=== PATIENT | male | born 2000 | race Caucasian/White ===

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

== ENCOUNTER 2020-04-29 06:14 | Day surgery (SDC) | payer OTHER ==
[2020-04-29] MEDS ORDERED: CEFAZOLIN SODIUM IN 0.9 % NACL 2 GM/100 ML BAG IV ONE (06:24)
[2020-04-29] MEDS ORDERED: LACTATED RINGERS 1,000 ML IV ONE ×3 (06:24→08:31)
[2020-04-29 06:42] LABS: HCG UR QUAL NEGATIVE
[2020-04-29] MEDS ORDERED: fentaNYL 100 MCG/2 ML VIAL IVP ONE (07:00)
[2020-04-29] MEDS ORDERED: DEXAMETHASONE 4 MG/ML VIAL IVP ONE (07:00)
[2020-04-29] MEDS ORDERED: ONDANSETRON 4 MG/2 ML VIAL IVP ONE (07:00)
[2020-04-29] MEDS ORDERED: KETOROLAC 30 MG/ML VIAL IVP ONE (07:00)
[2020-04-29] MEDS ORDERED: PROPOFOL 200 MG/20 ML VIAL IVP ONE (07:00)
[2020-04-29] MEDS ORDERED: BUPIVACAINE 0.25% PF 30 ML VIAL ONE (07:18)
--- NOTE | 2020-04-29 07:18 | ANESTHESIA ---
Pre-Anesthesia VS, & Labs - Diagnosis Right Arm nerve impingement - Procedure Right Cubital Tunnel Release Vital Signs: Temp Pulse Resp BP Pulse Ox 36.6 C 97 16 148/69 H 100 04/29/20 06:44 04/29/20 06:44 04/29/20 06:44 04/29/20 06:44 04/29/20 06:44 Height: 5 ft 9 in Weight (kg): 74 kg Body Mass Index: 24.0 BMI Classification: Healthy weight - Is Patient ?: No (HCG neg) Home Medications and Allergies Home Medications: Ambulatory Orders Ethinyl Estradiol/Drospirenone [Koki 28 Tablet] 1 each PO DAILY 04/09/20 Ethinyl Estradiol/Drospirenone [Koki 28 Tablet] 1 each PO DAILY 04/09/20 Allergies/Adverse Reactions: Allergies Allergy/AdvReac Type Severity Reaction Status Date / Time No Known Drug Allergies Allergy Verified 04/09/20 14:59 Anes History & Medical History - Anesthetic History Anesthesia Complications: reports: No previous complications Family history of Anesthesia Complications: Denies Family history of Malignant Hyperthermia: Denies - Medical History Cardiovascular: reports: None Pulmonary: reports: None Gastrointestinal: reports: None Urinary: reports: Retention Neuro: reports: None Musculoskeletal: reports: Other Endocrine/Autoimmune: reports: None Blood Disorders: reports: None Skin: reports: Psoriasis Smoking Status: Never smoker Psychosocial: reports: No issues indicated History of Cancer?: No Exam Dental: WNL Mouth Openin Fingerbreadth Mallampati classification: II Thyromental Distance: 4-6 cm Plan Anesthesia Type: General Consent for Procedure(s) Verified and Reviewed: Yes Code Status: Attempt Resuscitation ASA classification: 1-Healthy patient Is this case an emergency?: No
[2020-04-29] MEDS ORDERED: NALOXONE 0.4 MG/ML VIAL IVP PRN (07:20)
[2020-04-29] MEDS ORDERED: ATROPINE ABBOJECT 1 MG/10 ML SYRINGE IVP PRN (07:20)
[2020-04-29] MEDS ORDERED: fentaNYL 100 MCG/2 ML VIAL IVP PRN (07:20)
[2020-04-29] MEDS ORDERED: ACETAMINOPHEN 1,000 MG/100 ML 100 ML IV ONE (07:20)
[2020-04-29] MEDS ORDERED: ePHEDrine 50 MG/ML VIAL IVP PRN (07:20)
[2020-04-29] MEDS ORDERED: MORPHINE 2 MG/ML CARPUJECT IVP PRN (07:20)
[2020-04-29] MEDS ORDERED: HYDROmorphone 0.5 MG/0.5 ML SYRINGE IVP PRN (07:20)
[2020-04-29] MEDS ORDERED: METOCLOPRAMIDE 10 MG/2 ML VIAL IVP PRN (07:20)
[2020-04-29] MEDS ORDERED: ONDANSETRON 4 MG/2 ML VIAL IVP PRN ×2 (07:20→08:40)
[2020-04-29] MEDS ORDERED: BUPIVACAINE 0.25% PF 30 ML VIAL SUBQ ONE ×2 (07:54)
[2020-04-29] MEDS ORDERED: LACTATED RINGERS 1,000 ML IV SCH (08:00)
[2020-04-29] MEDS ORDERED: oxyCODONE 5 MG TABLET PO PRN (08:40)
--- NOTE | 2020-04-29 08:50 | IMMEDIATE POSTOPERATIVE NOTE ---
Immediate Postoperative Note - Procedure Note Procedure Date: 04/29/20 Pre-Op Diagnosis: right cubital tunnel syndrome Procedure: right cubital tunnel release Post-Op Diagnosis: same Primary Surgeon: Khai Shetty Neuro Ophthalmologist: Aftab Dickerson Findings: contused nerve Complications: No complications Estimated Blood Loss (in cc): 5 Drains, Catheters, Devices: none Specimens and Cultures: none Plan of Care: same day discharge
[2020-04-29 09:09] VITALS: BP 138/68
--- NOTE | 2020-04-29 09:13 | ANESTHESIA POST OP EVALUATION ---
Anesthesia Post Eval - Post Anesthesia Eval Vitals: Last Vital Signs Temp 37.1 C 04/29/20 08:49 Pulse 92 04/29/20 09:09 Resp 14 04/29/20 09:09 BP 138/68 H 04/29/20 09:09 Pulse Ox 99 04/29/20 09:09 CV Function Including HR & BP: positive: Stable Pain Control: positive: Satisfactory Nausea & Vomiting: positive: Negative Mental Status: positive: Baseline Respiratory Status: Airway Patent Hydration Status: Satisfactory Anesthesia Complications: positive: None
--- NOTE | 2020-04-29 14:27 | OPERATIVE REPORT ---
Operative Report - Other Other Information/Narrative: Date of Surgery: 29 April 2020 Pre-Op Diagnosis: Right cubital tunnel syndrome Procedure: Right cubital tunnel release Postop Diagnosis: Right tunnel syndrome Primary Surgeon: Khai Shetty Secondary Surgeon: Aftab Dickerson Complications: None Tourniquet Time: 39 minutes EBL: 5 cc Findings: Injected nerve at the medial epicondyle. It was stable status post relief and did not subluxate Indication For Surgery: 20-year-old female with right ulnar nerve symptoms for many months. Her painful numbness did not respond to conservative measures and a nerve conduction study showed cubital tunnel syndrome. The risks, benefits, and alternatives were discussed. Risks include ulnar nerve instability, pain, bleeding, infection, damage to nearby structures to include nerves and blood vessels, numbness, lack of symptom relief, need for further surgery, DVT, PE, stroke, and . Written consent was obtained. Procedure in Detail: The patient was met in the pre-operative hold area on the day of the procedure. The operative extremity was signed and questions were answered. The patient was brought to the operating room and a general anesthetic was administered. Supine position was used and bony prominences were padded. Standard prepping and draping was performed. A sterile tourniquet was applied. A time out confirmed patient identification, laterality, procedure, allergies, antibiotics, and images. An Esmarch was used to exsanguinate the limb and the tourniquet was elevated to 250 mmHg. A 5 cm incision was made along the course of the ulnar nerve just posterior to the medial epicondyle. Scissor dissection was carried out and branches of the medial antebrachial cutaneous nerve were identified and protected. Scissor dissection was carried down to the cubital tunnel and it was opened just anterior to the attachment of the ligament on the olecranon. I took care to stay posterior to prevent future subluxation of the nerve. The ulnar nerve was identified and the cubital tunnel was dissected distally very carefully. I encountered the initial sensory branch to the capsule and the motor branches to the FCU and protected them. I sharply transected the fascia over the FCU to gain further access to the ulnar nerve as it passed deep into the muscle. blunt dissection was used to dissect the muscle and exposed the nerve further. I then released the fascia deep to the muscle and ensured the nerve was freely mobile distally without any compression points. I then moved proximal and followed the nerve up the medial arm a few centimeters taking care to protect any cutaneous branches. I freed the nerve proximally 4 cm from the medial epicondyle. I took care to leave as many blood vessels as possible attached to the nerve. I then inspected deep to the nerve an did not find any protruding osteophytes. The course of the nerve was smooth and no bony resection was necessary. I then irrigated the wound copiously and took her through a full range of motion. The nerve had no compression points and the nerve remained stable in the groove. I then loosely approximated the fascia to the posterior soft tissues to provide additional support. I again moved him through a full range of motion and the nerve glided smoothly without instability or compression points. The wound was then closed in a layered fashion with 2-0 Vicryl in the dermis and running Monocryl in the skin. A sterile dressing and splint was then applied and a bulky dressing was placed with the elbow nearly fully extended. He was awakened and transferred to the recovery room Postoperative plan: Gentle range of motion from 0-2 weeks. Follow-up at 2 weeks to cut Monocryl suture ends and assess the wound. I will remove the bulky dressing at that time and advance range of motion. No strengthening until 6 weeks.
== END 2020-04-29 06:15 | disposition home or self-care (01) ==
LOC: SDS 06:14
PROVIDERS: ATTEND Orthopaedic Surgery
PROC: 01N40ZZ Release Ulnar Nerve, Open Approach (ICD-10-PCS; principal; 2020-04-29 07:30)
DX: G56.21 Lesion of ulnar nerve, right upper limb (principal)
CPT/HCPCS: 81025

== ENCOUNTER 2020-06-24 09:13 | Outpatient (CLI) | payer OTHER ==
[2020-06-24] MEDS ORDERED: BUFFERED LIDOCAINE 10 ML SYRINGE ONE (09:35)
[2020-06-24] MEDS ORDERED: GADOBUTROL 7.5 MMOL/7.5 ML VIAL ONE (09:35)
--- NOTE | 2020-06-24 10:23 | XRAY Report ---
EXAMINATION: Right shoulder arthrogram for gadolinium injection CLINICAL INFORMATION: Pain right shoulder. COMPARISON STUDY: None TECHNIQUE: The risks, benefits, and alternatives of arthrography for injection of gadolinium for MRI, including the risks of bleeding, infection, and joint damage, were discussed with the patient and the patient s igned informed consent. The patient was placed supine on the fluoroscopy table and the right shoulder prepped and draped in usual sterile fashion. Using local anesthesia and sterile technique the right shoulder joint was accessed using a 22 gauge needle. Approximately 15 mL of the following mixture was injected: 10 ml saline and 0.3 ml Gadavist. The needle was withdrawn. The patient tolerated the proc edure well. There were no complications. Fluoroscopy time: < 1 minute FINDINGS: Fluoroscopic images demonstrate intra-articular location of contrast. IMPRESSION: 1. Successful intra-articular injection of gadolinium for MRI. Reviewed by: Mina Garcia MD on 06/24/2020 10:22 AM PST Approved by: Mina Garcia MD on 06/24/2020 10:22 AM PST Station ID: [id number]
[2020-06-24] MEDS ORDERED: BUFFERED LIDOCAINE 10 ML SYRINGE IU ONE (10:52)
[2020-06-24] MEDS ORDERED: iohexoL-240 10 ML VIAL IVP ONE (10:54)
[2020-06-24] MEDS ORDERED: GADOBUTROL 7.5 MMOL/7.5 ML VIAL IVP ONE (10:54)
--- NOTE | 2020-06-24 14:03 | MRI Report ---
PROCEDURE: Arthrogram Shoulder RT INDICATIONS: RT SHLDR INSTABILITY CONTRAST: 12 mL of diluted intra-articular gadolinium contrast. TECHNIQUE: After the administration of 12 mL of dilute intra-articular Gadolinium contrast, oblique coronal T1 a nd T2 spin echo with fat saturation, oblique sagittal T1 spin echo with and without fat saturation, o blique sagittal T2 fast spin echo with fat saturation, axial T1 spin echo with fat saturation through the shoulder. COMPARISON: None. FINDINGS: Image quality: Excellent. Rotator cuff: There is tendinosis and very low-grade articular surface partial-thickness tear involvi ng distal supraspinatus at its insertion on humeral head. The infraspinatus, and subscapularis tendon s appear intact throughout. No rotator cuff muscle atrophy on sagittal images. Bones and bursae: No bone marrow contusions or fractures. No acromioclavicular joint degeneration. The acromion demonstrates conventional anatomy, without an os acromiale. Capsule and soft tissues: The labrum and glenohumeral ligaments appear intact. The long head of the biceps tendon demonstrates normal location and morphology. The rotator interval appears normal, wit hout fibrosis. The coracohumeral ligament is of normal thickness. No intra-articular bodies. IMPRESSION: 1. Distal supraspinatus tendinosis and low-grade articular surface partial-thickness tear near its in sertion on humeral head. No full-thickness rotator cuff tendon rupture. 2. No marrow edema. No fracture or dislocation. 3. No evidence of focal labral tear. Reviewed by: Jan Melgoza MD on 06/24/2020 1:02 PM [facility] Approved by: Jan Melgoza MD on 06/24/2020 1:02 PM [facility] Station ID: [id number]
== END 2020-06-24 09:14 | disposition home or self-care (01) ==
LOC: DI 09:13
PROVIDERS: ATTEND Orthopaedic Surgery
DX: M25.311 Other instability, right shoulder (principal); M75.101 Unspecified rotator cuff tear or rupture of right shoulder, not specified as traumatic
CPT/HCPCS: 23350; 73222; 77002; A9585; Q9966

== ENCOUNTER 2020-09-12 12:40 | Emergency (ER) | payer OTHER ==
[2020-09-12] MEDS ORDERED: IBUPROFEN 600 MG TABLET PO STA (12:48)
[2020-09-12 12:50] VITALS: BP 157/101
--- NOTE | 2020-09-12 12:51 | ED Physician Documentation ---
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 She has had about 2-1/2 years of atraumatic right shoulder pain. Had an MRI done in October 2018 showing small amount of bursal fluid with a type II unit partite undersurface osseous acromion shape, a prominent sublabral hole. Subsequently had an MRI arthrogram done about 2 months ago showing distal supraspinatus tendinosis and low-grade articular surface partial-thickness tear. She takes ibuprofen intermittently for the pain but without specific injury or overuse the pain has been worse over the last few days and her command thought she should come to the ER to get it evaluated. Review of Systems Constitutional: denies: Fever, Chills Nose: reports: Reviewed and negative Throat: reports: Reviewed and negative Cardiac: reports: Reviewed and negative PD PAST MEDICAL HISTORY - Past Medical History Cardiovascular: None Respiratory: None Neuro: None Endocrine/Autoimmune: None GI: None : Retention HEENT: None Psych: None Musculoskeletal: Other Derm: Psoriasis - Present Medications Home Medications: Ambulatory Orders Medication Instructions Recorded Confirmed Ethinyl Estradiol/Drospirenone 1 each PO DAILY 04/09/20 04/29/20 [Koki 28 Tablet] HYDROcod/ACETAM 5/325 [[place] 5/325] 1 - 2 tab PO Q6H PRN #15 tab 09/12/20 Ibuprofen [Motrin] 800 mg PO Q8H PRN #30 tab 09/12/20 - Allergies Allergies/Adverse Reactions: Allergies Allergy/AdvReac Type Severity Reaction Status Date / Time No Known Drug Allergies Allergy Verified 09/12/20 12:50 - Social History Smoking Status: Never smoker PD ED PE NORMAL - Vitals Vital signs reviewed: Yes - General General: Alert and oriented X 3, No acute distress - Extremities Extremities: Other (R shoulder not warm, no cellulitis. Not tender. Only can abduct to 90 degrees d/t pain. Passive int/ext rotation not painful.) - Neuro Neuro: Alert and oriented X 3, Normal speech Results - Vitals Vitals: Vital Signs - 24 hr 09/12/20 09/12/20 12:48 12:50 Temperature 36.4 C L Heart Rate 121 H 111 H Respiratory 16 Rate Blood Pressure 157/101 H O2 Saturation 99 Oxygen O2 Source Room air Departure - Departure Disposition: Home, Self Care Clinical Impression: Rotator cuff disorder Qualifiers: Laterality: right Qualified Code(s): M67.911 - Unspecified disorder of synovium and tendon, right shoulder Condition: Good Record reviewed to determine appropriate education?: Yes Instructions: ED Tendinitis Rotator Cuff Follow-Up: Aftab Dickerson MD [Provider Admit Priv/Credential] - Prescriptions: Ibuprofen [Motrin] 800 mg PO Q8H PRN #30 tab PRN Reason: PAIN &/OR FEVER HYDROcod/ACETAM 5/325 [Sarah Ann 5/325] 1 - 2 tab PO Q6H PRN #15 tab PRN Reason: Pain Comments: Followup with Dr Dickerson, next available. Return if worse. Forms: Activity restrictions
== END 2020-09-12 12:56 | disposition home or self-care (01) ==
LOC: ED 12:40
DX: M67.911 Unspecified disorder of synovium and tendon, right shoulder (principal); M75.101 Unspecified rotator cuff tear or rupture of right shoulder, not specified as traumatic
CPT/HCPCS: 99282; 99283; A9270

== ENCOUNTER 2021-05-05 08:15 | Outpatient (CLI) | payer OTHER ==
--- NOTE | 2021-05-05 08:54 | XRAY Report ---
PROCEDURE: Shoulder 3 View RT INDICATIONS: RIGHT SHOULDER PAIN TECHNIQUE: 4 views of the shoulder were acquired. COMPARISON: None. FINDINGS: Bones: No fractures or dislocations. No suspicious bony lesions. Visualized ribs appear intact. Soft tissues: No suspicious soft tissue calcifications. IMPRESSION: Right shoulder without acute radiographic abnormalities or significant degenerative s[place]. Reviewed by: Anthony Ross MD on 05/05/2021 8:53 AM PDT Approved by: Anthony Ross MD on 05/05/2021 8:53 AM PDT Station ID: [id number]
== END 2021-05-05 23:59 ==
LOC: DI.N 08:15
PROVIDERS: ATTEND Physician Assistant
DX: M25.511 Pain in right shoulder (principal)

== ENCOUNTER 2021-07-07 17:17 | Emergency (ER) | payer OTHER ==
[2021-07-07 17:31] VITALS: BP 149/84
--- NOTE | 2021-07-07 17:57 | ED Physician Documentation ---
History of Present Illness - Stated complaint Stated Complaint: FEMALE - Chief complaint Chief Complaint: General - Additonal information Additional information: 21-year-old female presents to the emergency department for evaluation of heavy menstrual flow periods. Began last night. She typically uses a menstrual cup and states that today she has had to change at a time which is more than she certainly ever has. She estimates she has lost about two thirds of a cup of blood. Have been no fevers, no chest pain, no shortness of air, no syncope. She states that she has heavy periods but never this heavy. She did lose her IUD last month. Review of Systems Constitutional: denies: Fever, Chills Eyes: reports: Reviewed and negative Ears: reports: Reviewed and negative Nose: reports: Reviewed and negative Throat: reports: Reviewed and negative Cardiac: reports: Reviewed and negative GI: denies: Abdominal Pain, Vomiting : reports: Vaginal bleeding Skin: denies: Rash, Lesions PD PAST MEDICAL HISTORY - Past Medical History Cardiovascular: None Respiratory: None Neuro: None Endocrine/Autoimmune: None GI: None : Retention HEENT: None Psych: None Musculoskeletal: Other Derm: Psoriasis - Past Surgical History Past Surgical History: Yes - Present Medications Home Medications: Ambulatory Orders Medication Instructions Recorded Confirmed Ethinyl Estradiol/Drospirenone 1 each PO DAILY 04/09/20 04/29/20 [Koki 28 Tablet] HYDROcod/ACETAM 5/325 [[place] 5/325] 1 - 2 tab PO Q6H PRN #15 tab 09/12/20 Ibuprofen [Motrin] 800 mg PO Q8H PRN #30 tab 09/12/20 - Allergies Allergies/Adverse Reactions: Allergies Allergy/AdvReac Type Severity Reaction Status Date / Time No Known Drug Allergies Allergy Verified 07/07/21 17:30 - Social History Does the pt smoke?: No Smoking Status: Never smoker Does the pt drink ETOH?: No Does the pt have substance abuse?: No - Immunizations Immunizations are current?: Yes PD ED PE NORMAL - General General: Alert and oriented X 3, No acute distress - HEENT HEENT: PERRL - Cardiac Cardiac: RRR, No murmur - Respiratory Respiratory: Clear bilaterally - Abdomen Abdomen: Normal bowel sounds, Soft, Non tender, Non distended - Derm Derm: Normal color, Warm and dry, No rash - Extremities Extremities: No deformity - Neuro Neuro: Alert and oriented X 3 Results - Vitals Vitals: Vital Signs - 24 hr 07/07/21 17:27 Temperature 36.3 C L Heart Rate 91 Respiratory 15 Rate Blood Pressure 149/84 H O2 Saturation 100 Oxygen O2 Source Room air - Labs Labs: Laboratory Tests 07/07/21 07/07/21 07/07/21 17:40 17:53 17:53 WBC 6.6 RBC 4.25 Hgb 13.6 Hct 39.4 MCV 92.7 MCH 32.0 H MCHC 34.5 RDW 11.4 L Plt Count 252 MPV 9.8 Neut # (Auto) 4.4 Lymph # (Auto) 1.3 L [place] # (Auto) 0.7 Eos # (Auto) 0.1 Baso # (Auto) 0.0 Absolute Nucleated RBC 0.00 Nucleated RBC % 0.0 Sodium 136 Potassium 3.6 Chloride 100 L Carbon Dioxide 27 Anion Gap 9.0 BUN 10 Creatinine 0.6 Estimated GFR (MDRD) 126 Glucose 117 H Calcium 9.5 Urine Color YELLOW Urine Clarity CLEAR Urine pH 6.0 Ur Specific [place] 1.025 Urine Protein NEGATIVE Urine Glucose (UA) NEGATIVE Urine Ketones NEGATIVE Urine Occult Blood MODERATE H Urine Nitrite NEGATIVE Urine Bilirubin NEGATIVE Urine Urobilinogen 0.2 (NORMAL) Ur Leukocyte Esterase NEGATIVE Ur Microscopic Review INDICATED Urine Culture Comments Not Reportable Urine HCG, Qual NEGATIVE - Rads (name of study) pelvic US Radiology: Final report received (14 mm left ovarian hemorrhagic cyst. No fibroids. No endometrial thickening.) PD MEDICAL DECISION MAKING - ED course Complexity details: reviewed results, re-evaluated patient, considered differential, d/w patient ED course: 21-year-old female presents emergency department for evaluation of heavy vaginal bleeding. She started her menstrual cycle last night. This is her first menses after her IUD came out. She is very resistant to OCP use moving forward if she can avoid it. She states that today she has changed her menstrual cup approximately eight times it was full each time. She denies any lower pelvic cramping. She has no fevers, no syncope tachycardia shortness of air or chest pain. Screening labs show a very healthy hemoglobin of 13.6. Chemistry is unrevealing. Ultrasound did not reveal a thickened endometrium or fibroid. She does have a noted left hemorrhagic cyst. Discussed with the patient that her first menses after her IUD came out may be heavier than normal but in general we would expect the vaginal bleeding to stop in 7 to 10 days. I did offer her OCP use but she would like to do the for that unless the bleeding fails to improve or she becomes symptomatic. Otherwise emergent return precautions were discussed and she is advised close follow-up with [facility]. Departure - Departure Disposition: 01 Home, Self Care Clinical Impression: Episode of heavy vaginal bleeding Condition: Stable Record reviewed to determine appropriate education?: Yes Comments: John you are seen in the emergency department today for heavy vaginal bleeding in the setting of your current menstrual cycle. Your vital signs, hemoglobin and screening labs are all essentially normal. The ultrasound did not show any fibroids in your uterus. Your endometrium is not excessively thickened. In general the first menstrual cycle after an IUD is removed can be heavier than would otherwise be expected. P attention to your symptoms. If you develop racing heart at rest, feel short of breath or have any fainting episodes or your bleeding fails to improve after 10 days then please return to the ER for second evaluation. At that time we could institute oral hormone use.
[2021-07-07 17:58] LABS: BASOPHILS % (AUTO) 0.6 %; EOSINOPHILS # (AUTO) 0.1 10^3/uL (0.0-0.7); EOSINOPHILS % (AUTO) 1.8 %; HCT - HEMATOCRIT 39.4 % (37.0-47.0); HGB - HEMOGLOBIN 13.6 g/dL (12.0-16.0); LYMPHOCYTES # (AUTO) 1.3 10^3/uL (1.5-3.5); MEAN CORPUSCULAR HGB CONC 34.5 g/dL (32.0-36.0); MEAN CORPUSCULAR VOLUME 92.7 fL (81.0-99.0); MEAN PLATELET VOLUME 9.8 fL (7.9-10.8); MONOCYTES # (AUTO) 0.7 10^3/uL (0.0-1.0); MONOCYTES % (AUTO) 10.9 %; NEUTROPHILS # (AUTO) 4.4 10^3/uL (1.5-6.6); NEUTROPHILS % (AUTO) 66.4 %; PLT - PLATELET COUNT 252 10^3/uL (130-450); RED BLOOD COUNT 4.25 10^6/uL (4.20-5.40); RED CELL DISTRIBUTION WIDTH 11.4 % (12.0-15.0); WHITE BLOOD COUNT 6.6 x10^3/uL (4.8-10.8)
[2021-07-07 18:05] LABS: CALCIUM 9.5 mg/dL (8.5-10.3); CREATININE 0.6 mg/dL (0.4-1.0); POTASSIUM 3.6 mmol/L (3.5-5.0)
[2021-07-07 18:58] LABS: BILIRUBIN,URINE NEGATIVE (NEGATIVE); GLUCOSE, URINE (UA) NEGATIVE (NEGATIVE); KETONES,URINE (UA) NEGATIVE (NEGATIVE); LEUKOCYTE ESTERASE, URINE NEGATIVE (NEGATIVE); NITRITE,URINE NEGATIVE (NEGATIVE); OCCULT BLOOD,URINE MODERATE (NEGATIVE); PROTEIN,URINE NEGATIVE (NEGATIVE); UROBILINOGEN,URINE 0.2 (NORMAL) E.U./dL (NORMAL)
[2021-07-07 19:02] LABS: CLARITY,URINE CLEAR (CLEAR); HCG UR QUAL NEGATIVE
[2021-07-07 19:19] LABS: BACTERIA,URINE Rare /HPF (None Seen); SQUAMOUS EPITHELIAL CELL,UR RARE Squamous (<= Few); WBC,URINE 0-3 /HPF (0-5); YEAST,URINE PRESENT
--- NOTE | 2021-07-07 19:25 | Ultrasound Report ---
PROCEDURE: Pelvic w/Transvag+Doppler Comp INDICATIONS: heavy menses TECHNIQUE: Real-time scanning was performed of the pelvic organs, with image documentation. Additional endovagi nal scanning was necessary due to incomplete visualization of the adnexal and endometrial structures by transabdominal scanning. COMPARISON: None. FINDINGS: No pathologic free abdominal or pelvic fluid. Uterus: Uterus is anteverted and measures 8.6 x 3.9 x 4.5 cm. Endometrium measures up to 0.3 cm in t hickness. No discrete uterine mass lesions identified. Ovaries: The right ovary measures 4 x 2.8 x 2.1 cm with a volume of 12 mL and the left ovary measure s 2.5 x 1.7 x 2 cm with a volume of 6.2 mL. There is a thick-walled cyst with internal septations in the right ovary measuring up to 1.4 x 1.4 x 1.2 cm suggestive of a hemorrhagic cyst. There is patent arterial and venous flow demonstrated within the left ovary. There is patent vascularity within the r ight ovary on color Doppler interrogation. IMPRESSION: 1. Probable hemorrhagic cyst demonstrated within the left ovary. 2. No sonographic evidence of ovarian torsion at this time. Reviewed by: Cuate Duncan MD on 07/07/2021 7:24 PM PST Approved by: Cuate Duncan MD on 07/07/2021 7:24 PM PST Station ID: [id number]
== END 2021-07-07 19:11 | disposition home or self-care (01) ==
LOC: ED 17:17
DX: N92.0 Excessive and frequent menstruation with regular cycle (principal); N83.202 Unspecified ovarian cyst, left side
CPT/HCPCS: 36415; 80048; 81001; 81003; 81025; 85025; 87086; 93975; 99282; 99284